=== PATIENT | male | born 1995 | race Caucasian/White ===

== ENCOUNTER 2021-11-07 12:15 | Emergency (ER) | payer OTHER ==
[2021-11-07] MEDS ORDERED: BENADRYL 25 MG CAPSULE ONE (12:38)
[2021-11-07] MEDS: BENADRYL 25 MG CAPSULE PO ONE (12:39)
--- NOTE | 2021-11-07 12:47 | ERPHSYRPT ---
- History of Present Illness Source: patient Exam Limitations: other (History through spanish interpreter) Patient Subjective Stated Complaint: pt here for a bee sting to upper left eyebrow. pt got epi injection [employer], Triage Nursing Assessment: pt alert, walked in, resp easy, skin w/d/p, has swelling to upper left eyebrow, ice applied, no difficulty swallowing or breathing Physician History: 25 yo HM w h/o allergic rx to bee stings was stung on glabella slightly before arrival. Pt given IM Epi x1 and is currently asymptomatic. He states that he was mildly dyspneic at first w numb hands but resolved after IM Epi. Timing/Duration: other (1 Hr before arrival) Modifying Factors: Improves With: other (Better w Im Epi) Associated Symptoms: denies symptoms Allergies/Adverse Reactions: amoxicillin Allergy (Verified 11/07/21 12:35) Penicillins Allergy (Verified 11/07/21 12:35) Home Medications: No Reportable Medications [No Reported Medications] 11/07/21 [History] Hx Tetanus, Diphtheria Vaccination/Date Given: No Hx Influenza Vaccination/Date Given: No Hx Pneumococcal Vaccination/Date Given: No Immunizations Up to Date: (unknown) Travel Risk - International Travel Have you traveled outside of the country in past 3 weeks: No - Coronavirus Screening Are you exhibiting any of the following symptoms?: No Close contact with a COVID-19 positive Pt in past 14-21 Days: No - Vaccine Status Have you recieved a Covid-19 vaccination: No Graduate Student: Unknown - Vaccination Dates Dates if Unknown: ? - Review of Systems Constitutional: No Symptoms Eyes: No Symptoms Ears, Nose, & Throat: No Symptoms Respiratory: No Symptoms Cardiac: No Symptoms Abdominal/Gastrointestinal: No Symptoms Genitourinary Symptoms: No Symptoms Musculoskeletal: No Symptoms Skin: No Symptoms Neurological: No Symptoms Psychological: No Symptoms Endocrine: No Symptoms Hematologic/Lymphatic: No Symptoms Immunological/Allergic: No Symptoms - Past Medical History Pertinent Past Medical History: No - Past Surgical History Past Surgical History: No - Social History Smoking Status: Current every day smoker Exposure to second hand smoke: Yes Drug Use: none Patient Lives Alone: No - Nursing Vital Signs Nursing Vital Signs: Initial Vital Signs Temperature 97.8 F 11/07/21 12:27 Pulse Rate 63 11/07/21 12:27 Respiratory Rate 16 11/07/21 12:27 Blood Pressure 149/68 11/07/21 12:27 O2 Sat by Pulse Oximetry 99 11/07/21 12:27 Pain Scale Pain Intensity 0 Mildly hypertensive - Physical Exam General Appearance: no apparent distress Eye Exam: PERRL/EOMI, eyes nml inspection Ears, Nose, Throat Exam: normal ENT inspection, TMs normal, pharynx normal, moist mucous membranes Neck Exam: normal inspection, non-tender, supple, full range of motion, No meningismus, No mass, No Brudzinski, No Kernig's Respiratory Exam: normal breath sounds, lungs clear, airway intact, No chest tenderness, No respiratory distress Cardiovascular Exam: regular rate/rhythm, normal heart sounds, normal peripheral pulses, capillary refill <2 sec, No murmur Gastrointestinal/Abdomen Exam: soft, normal bowel sounds, No tenderness Back Exam: normal inspection, normal range of motion, No CVA tenderness, No vertebral tenderness Extremity Exam: normal inspection, normal range of motion, pelvis stable Neurologic Exam: alert, oriented x 3, cooperative, safe expert II-XII nml as tested, normal mood/affect, nml cerebellar function, nml station & gait, sensation nml Skin Exam: other (Small area of edema/erythema L glabella) Lymphatic Exam: No adenopathy SpO2 Interpretation: normal SpO2: 99 O2 Delivery: Room Air - Course Nursing assessment & vital signs reviewed: Yes Ordered Tests: Medication Summary Discontinued Medications Generic Name Dose Route Start Last Admin Trade Name Germainq PRN Reason Stop Dose Admin Diphenhydramine HCl 25 mg 11/07/21 12:37 11/07/21 12:39 Diphenhydramine Hcl 25 Mg Capsule PO 11/07/21 12:38 25 mg STAT ONE Administration Diphenhydramine HCl Confirm 11/07/21 12:38 Diphenhydramine Hcl 25 Mg Capsule Administered 11/07/21 12:39 Dose 25 mg .ROUTE .STK-MED ONE - Progress Progress: improved Progress Note: 11/07/21 12:46 25mg po Benadryl 11/08/21 01:01 No evidence of anaphylaxis in ER Counseled pt/family regarding: diagnosis, need for follow-up - Departure Departure Disposition: Home Clinical Impression: Bee sting allergy Condition: Stable Critical Care Time: No Referrals: DOCTOR,NO FAMILY [Primary Care Provider] - Follow up/PCP as directed Instructions: Insect Bites and Stings (DC) Additional Instructions: Continue Benadryl 25mg every 6 hours as needed EpiPen as needed, may repeat x1 Return to ER for severe reaction after injecting EpiPen
[2021-11-07 13:18] VITALS: BP 121/67; PULSE 50
[2021-11-08 01:01] VITALS: O2SAT 99
== END 2021-11-07 13:10 | disposition home or self-care (01) ==
LOC: ED 12:15 → EDBD 12:15 → ED 13:10
DX: T63.441A Toxic effect of venom of bees, accidental (unintentional), initial encounter (principal); R06.00 Dyspnea, unspecified; R20.2 Paresthesia of skin; Z72.0 Tobacco use; Z28.310 Unvaccinated for COVID-19
CPT/HCPCS: 99281; A9270-GY